=== PATIENT | male | born 1955 | race Caucasian/White ===

== ENCOUNTER 2016-06-04 20:01 | Emergency (ER) | payer OTHER ==
[~2016-06-04] VITALS: Ht 182.9 cm; Wt 77.0 kg
[~2016-06-04 20:01] MED LIST: METH5SOL3 PO
[2016-06-04 20:19] VITALS: BP 144/95; PULSE 93; RESP 18; TEMP 98.7; O2SAT 98
[2016-06-04] MEDS ORDERED: SODIUM CHLORIDE 0.9% FLUSH 5 ML FLUSH IVF PRN (20:30)
[2016-06-04] MEDS ORDERED: ONDANSETRON HCL 4 MG/2 ML VIAL IV PUSH ONE (20:30)
[2016-06-04] MEDS ORDERED: MORPHINE SULFATE 4 MG/ML INJ IV PUSH ONE (20:30)
[2016-06-04 20:36] VITALS: BP_SYST 140; BP_SYST 146; BP_DIAS 79; BP_DIAS 90; O2SAT 97
--- NOTE | 2016-06-04 20:47 | PD ---
HPI . Back and chest pain Chief Complaint: Pain: Acute or Chronic Time Seen by Provider: 20:29 Travel History International Travel<30 days: No Contact w/Intl Traveler<30days: No Traveled to known affect area: No History of Present Illness HPI Patient presents with back and chest pain. Onset yesterday. He is also complaining with shortness of breath. He reports increased chest pain with breathing. He states that his symptoms are very similar to symptoms that he had previously when he was diagnosed with lymphoma. [facility] Past Medical History Arthritis: Yes Cancer: Yes (lymphoma) Cardiovascular Problems: No Diabetes: No Diminished Hearing: No Endocrine: No Gastrointestinal Disorders: No Genitourinary: No Hepatitis: No Hiatal Hernia: No Hypertension: No Immune Disorder: No Implanted Vascular Access Dvce: No Musculoskeletal: Yes Neurologic: No Psychiatric: No Reproductive: No Respiratory: No Thyroid Disease: No Tetanus Vaccination: Unknown Influenza Vaccination: No Past Surgical History Abdominal Surgery: No Cardiac Surgery: No Ear Surgery: No Endocrine Surgery: No Eye Surgery: No Genitourinary Surgery: Yes (VASECTOMY) Gynecologic Surgery: Yes Neurologic Surgery: No Oral Surgery: No Pacemaker: No Thoracic Surgery: No Other Surgery: Yes (VASECTOMY) Social History Alcohol Use: Yes (1-2 BEERS 1-2X WEEK) Tobacco Use: Yes (1/2 PK/DAY) Substance Use: Yes (MARIJUANA USE 1 YEAR AGO) Allergies-Medications (Allergen,Severity, Reaction): Coded Allergies: No Known Allergies (Unverified , 06/04/16) Reported Meds & Prescriptions Reported Meds & Active Scripts Active No Active Prescriptions or Reported Medications Review of Systems Except as stated in HPI: all other systems reviewed are Neg General / Constitutional: No: Fever, Chills Cardiovascular: Positive: Chest Pain or Discomfort Respiratory: Positive: Shortness of Breath Gastrointestinal: No: Nausea, Vomiting, Diarrhea Musculoskeletal: Positive: Pain (upper back pain and lower back pain.) Hematologic/Lymphatic: Positive: Lymph Node Enlargement Physical Exam Narrative GENERAL: The patient is visibly hyperventilating. He is taking very shallow, rapid breaths. He appears anxious. SKIN: Warm and dry. HEAD: Atraumatic. Normocephalic. EYES: Pupils equal and round. ENT: No nasal bleeding or discharge. Mucous membranes pink and moist. NECK: Trachea midline. Neck is supple. CARDIOVASCULAR: Regular rate and rhythm. Heart sounds are normal. RESPIRATORY: No accessory muscle use. Lungs are clear with full air movement throughout. As stated previously, he is hyperventilating. He does have chest wall tenderness. GASTROINTESTINAL: Abdomen soft, non-tender, nondistended. MUSCULOSKELETAL: No obvious deformities. No edema. He has tenderness to palpation of the upper back between his shoulder blades and of the lower back at about the level of the iliac crests. NEUROLOGICAL: Awake and alert. No obvious cranial nerve deficits. Motor grossly within normal limits. Normal speech. PSYCHIATRIC: Appropriate mood and affect; insight and judgment normal. Data Data Last Documented VS Vital Signs Date Time Temp Pulse Resp B/P Pulse Ox O2 Delivery O2 Flow Rate FiO2 06/04/16 23:09 84 18 131/76 96 Room Air 06/04/16 20:19 98.7 Orders Electrocardiogram (06/04/16 20:12) Ckmb (Isoenzyme) Profile (06/04/16 20:29) Complete Blood Count With Diff (06/04/16 20:29) Comprehensive Metabolic Panel (06/04/16 20:29) Magnesium (Mg) (06/04/16 20:29) Prothrombin Time / Inr (Pt) (06/04/16 20:29) Act Partial Throm Time (Ptt) (06/04/16 20:29) Troponin I (06/04/16 20:29) Ecg Monitoring (06/04/16 20:29) Bilateral Bp Monitoring (06/04/16 20:29) Iv Access Insert/Monitor (06/04/16 20:29) Oximetry (06/04/16 20:29) Oxygen Administration (06/04/16 20:29) Morphine Inj (Morphine Inj) (06/04/16 20:30) Sodium Chloride 0.9% Flush (Ns Flush) (06/04/16 20:30) Ct Pulmonary Angiogram (06/04/16 20:29) Ondansetron Inj (Zofran Inj) (06/04/16 20:30) Ct Lumb Spine W/O Contrast (06/04/16 20:29) Lorazepam Inj (Ativan Inj) (06/04/16 22:00) Morphine Inj (Morphine Inj) (06/04/16 22:00) Iohexol 350 Inj (Omnipaque 350 Inj) (2/14/17 21:55) Labs Laboratory Tests Test 06/04/16 20:30 White Blood Count 8.2 TH/MM3 Red Blood Count 4.01 MIL/MM3 Hemoglobin 12.8 GM/DL Hematocrit 37.2 % Mean Corpuscular Volume 92.7 FL Mean Corpuscular Hemoglobin 31.8 PG Mean Corpuscular Hemoglobin 34.3 % Concent Red Cell Distribution Width 13.5 % Platelet Count 319 TH/MM3 Mean Platelet Volume 6.9 FL Neutrophils (%) (Auto) 67.1 % Lymphocytes (%) (Auto) 18.9 % Monocytes (%) (Auto) 10.1 % Eosinophils (%) (Auto) 3.3 % Basophils (%) (Auto) 0.6 % Neutrophils # (Auto) 5.6 TH/MM3 Lymphocytes # (Auto) 1.5 TH/MM3 Monocytes # (Auto) 0.8 TH/MM3 Eosinophils # (Auto) 0.3 TH/MM3 Basophils # (Auto) 0.0 TH/MM3 CBC Comment DIFF FINAL Differential Comment Prothrombin Time 10.7 SEC Prothromb Time International 1.0 RATIO Ratio Activated Partial 28.1 SEC Thromboplast Time Sodium Level 134 MEQ/L Potassium Level 3.9 MEQ/L Chloride Level 99 MEQ/L Carbon Dioxide Level 26.4 MEQ/L Anion Gap 9 MEQ/L Blood Urea Nitrogen 7 MG/DL Creatinine 0.57 MG/DL Estimat Glomerular Filtration 147 ML/MIN Rate Random Glucose 97 MG/DL Calcium Level 8.5 MG/DL Magnesium Level 2.1 MG/DL Total Bilirubin 0.4 MG/DL Aspartate Amino Transf 17 U/L (AST/SGOT) Alanine Aminotransferase 10 U/L (ALT/SGPT) Alkaline Phosphatase 168 U/L Total Creatine Kinase 88 U/L Troponin I LESS THAN 0.02 NG/ML Total Protein 7.2 GM/DL Albumin 3.4 GM/DL [facility] Medical Decision Making Medical Screen Exam Complete: Yes Emergency Medical Condition: Yes Medical Record Reviewed: Yes (records reviewed. 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 He is not being treated. Treatment is not felt to be necessary. He is simply being followed closely.) Interpretation(s) EKG shows a normal sinus rhythm with a ventricular rate of 90. No ST segment elevation or depression. Differential Diagnosis Differential diagnosis includes but is not limited to PE, syndrome, metastatic disease, degenerative disc disease. Narrative Course Patient presents for evaluation of chest and back pain. Onset was yesterday. CBC & BMP Diagram 06/04/16 20:30 AST is 17, ALT And alkaline phosphatase is 68. CK and troponin are normal. CT for PE: 1. No pulmonary embolus. 2. Patchy areas of suspected atelectasis or consolidation at the posterior mid and lower lungs. CT L spine: 1. Degenerative changes throughout with disc bulges. There is some narrowing of the right neural foramina at the L5-S1 level. 2. Moderate narrowing of the thecal sac at the L3-L4 and L4-L5 levels secondary to disc bulges and facet hypertrophy. 3. Focal sclerotic bone lesion at the left L1 pedicle. This is nonspecific. It could represent a benign lesion such as a hemangioma although these typically do not involve the pedicles. Other causes for sclerotic lesions could have a similar appearance. A stress reaction could potentially have this appearance. This area could be further evaluated with a bone scan to determine if this is metabolically active or not. This could be performed as an outpatient. Patient continues to have significant pain. He has had a total of 9 mg of morphine and 2 mg of Ativan. I will give him RX for Percocet and Flexeril. Physician Communication Physician Communication Dr. Colon does not believe that admission is necessary. She feels that oral pain control and close OP follow up would be appropriate. Diagnosis Primary Impression: Intractable back pain Additional Impressions: Chest pain Qualified Code: R07.9 - Chest pain, unspecified type Cervical lymphadenopathy Scripts Cyclobenzaprine (Flexeril)10 Mg Tab10 Mg PO TID PRN (pain) #15 TAB Ref 0 Prov:Carmelita De Santiago MD 06/04/16 Oxycodone-Acetaminophen (Percocet)5-325 mg Tab1-2 Tab PO Q4H PRN (PAIN) #12 TAB Ref 0 Prov:Carmelita De Santiago MD 06/04/16 Disposition: 01 DISCHARGE HOME Condition: Stable Carmelita De Santiago MD Jun 04, 2016 20:47
[2016-06-04 20:48] LABS: AUTOMATED NEUTROPHIL # 5.6 TH/MM3 (1.8-7.7); BASOPHIL % 0.6 % (0.0-2.0); EOSINOPHIL # 0.3 TH/MM3 (0-0.4); EOSINOPHIL % 3.3 % (0.0-4.0); HEMATOCRIT 37.2 % (39.0-51.0); HEMO FLAGS DIFF FINAL; LYMPH % 18.9 % (9.0-44.0); LYMPHOCYTE # 1.5 TH/MM3 (1.0-4.8); MEAN CELL VOLUME 92.7 FL (80.0-100.0); MEAN CORPUSCULAR HEMOGLOBIN 31.8 PG (27.0-34.0); MEAN CORPUSCULAR HGB CONC 34.3 % (32.0-36.0); MONO % 10.1 % (0.0-8.0); NEUT % 67.1 % (16.0-70.0); PLATELET COUNT 319 TH/MM3 (150-450); RED BLOOD COUNT 4.01 MIL/MM3 (4.50-5.90); RED CELL DISTRIBUTION WIDTH 13.5 % (11.6-17.2); WHITE BLOOD COUNT 8.2 TH/MM3 (4.0-11.0)
[2016-06-04 20:58] LABS: CHLORIDE 99 MEQ/L (98-107); POTASSIUM 3.9 MEQ/L (3.5-5.1); SODIUM (NA) 134 MEQ/L (136-145)
[2016-06-04 21:02] LABS: ANION GAP 9 MEQ/L (5-15); BICARBONATE 26.4 MEQ/L (21.0-32.0); BLOOD UREA NITROGEN 7 MG/DL (7-18); MAGNESIUM 2.1 MG/DL (1.5-2.5)
[2016-06-04 21:03] LABS: APTT (PATIENT) 28.1 SEC (24.3-30.1); PROTHROMBIN TIME - PATIENT 10.7 SEC (9.8-11.6)
[2016-06-04 21:05] LABS: ALT (GPT) 10 U/L (12-78); AST (GOT) 17 U/L (15-37); GLOMERULAR FILTRATION RATE 147 ML/MIN (>89)
[2016-06-04 21:07] LABS: TOTAL BILIRUBIN ADULT 0.4 MG/DL (0.2-1.0)
[2016-06-04 21:08] LABS: ALKALINE PHOSPHATASE 168 U/L (45-117)
[2016-06-04 21:21] LABS: CREATINE KINASE 88 U/L (39-308)
[2016-06-04 21:32] VITALS: BP 140/75; PULSE 89; RESP 18; O2SAT 97
[2016-06-04] MEDS ORDERED: IOHEXOL 350 MG/ML 10 ML VIAL (for RAD DIAG) IV ONE (21:55)
[2016-06-04] MEDS ORDERED: LORazepam 2 MG/ML VIAL IV PUSH ONE (22:00)
[2016-06-04] MEDS ORDERED: MORPHINE SULFATE 4 MG/ML INJ IV ONE (22:00)
--- NOTE | 2016-06-04 22:07 | RADHPO ---
EXAM DATE/TIME: 06/04/2016 21:29 [facility] COMPARISON: No previous studies available for comparison. INDICATIONS : Shortness of breath. Evaluate for embolism. IV CONTRAST: 75 cc Omnipaque 350 (iohexol) IV RADIATION DOSE: 11.94 CTDIvol (mGy) MEDICAL HISTORY : Lymphoma. SURGICAL HISTORY : None. ENCOUNTER: Initial ACUITY: 1 day PAIN SCALE: 10/10 LOCATION: Bilateral upper chest Posterior TECHNIQUE: Volumetric scanning of the chest was performed using a pulmonary embolism protocol MIP images were re constructed. Using automated exposure control and adjustment of the mA and/or kV according to patien t size, radiation dose was kept as low as reasonably achievable to obtain optimal diagnostic quality images. FINDINGS: PULMONARY ARTERIES: No filling defects are seen in the pulmonary arteries through the segmental level. LUNGS: There are patchy areas of increased density at the posterior mid and lower lungs bilaterally. There i s mild emphysematous change in the upper lungs. PLEURAE: There is no pleural thickening or pleural effusion. MEDIASTINUM: There is good visualization of the great vessels of the middle mediastinum. No evidence of mediastin al or hilar adenopathy/mass. MUSCULOSKELETAL: Within normal limits for patient age. MISCELLANEOUS: The visualized upper abdominal organs demonstrate no acute abnormality. CONCLUSION: 1. No pulmonary embolus. 2. Patchy areas of suspected atelectasis or consolidation at the posterior mid and lower lungs. Hermelindo Simms MD on June 04, 2016 at 22:04 Board Certified Radiologist. This report was verified electronically.
--- NOTE | 2016-06-04 22:27 | RADHPO ---
EXAM DATE/TIME: 06/04/2016 21:29 [facility] COMPARISON: CT PULMONARY ANGIOGRAM, June 04, 2016, 21:29. INDICATIONS : Lower back pain. RADIATION DOSE: 29.53 CTDIvol (mGy) MEDICAL HISTORY : Lymphoma. SURGICAL HISTORY : None. ENCOUNTER: Initial ACUITY: 1 day PAIN SCALE: 10/10 LOCATION: Bilateral lower back TECHNIQUE: Volumetric scanning of the lumbar spine was performed. Multiplanar reconstructions in the sagittal, coronal and oblique axial planes were performed. Using automated exposure control and adjustment of the mA and/or kV according to patient size, radiation dose was kept as low as reasonab ly achievable to obtain optimal diagnostic quality images. FINDINGS: There are five non rib-bearing lumbar elements. The lumbar vertebral bodies are iban l in height. They are normally aligned in the sagittal plane. There is a mild dextrocurvature of th e lumbar spine at the apex of the L3 level. There are marginal osteophytes seen throughout. T12-L1: Disc space is grossly intact. Significant stenosis is not appreciated. The neural foramina are normal. There is sclerosis at the left pedicle. This is nonspecific. No other possible focal b one lesions are seen throughout the study. L1-L2: The disc space is grossly intact. Significant stenosis is not appreciated. The neural for rk are normal. L2-L3: There is mild diffuse disc bulge. This straightens the anterior border of the thecal sac c ausing a mild impression on the anterior aspect of the thecal sac. The neural foramina are patent katia aterally. There is mild facet hypertrophy. L3-L4: There is moderate diffuse disc bulge. There is mild facet hypertrophy. These changes lead to moderate narrowing of the thecal sac. The neural foramina are grossly patent. L4-L5: There is moderate diffuse disc bulge. There is mild facet hypertrophy. These changes lead to moderate narrowing of the thecal sac. The neural foramina are grossly normal. L5-S1: Disc demonstrates decreased signal. There is mild diffuse disc bulge. Significant narrowing of the thecal sac is not seen. There is facet hypertrophy being worse on the right. There is some degree of narrowing of the right neural foramina. The left neural foramina appears patent. CONCLUSION: 1. Degenerative changes throughout with disc bulges. There is some narrowing of the right neural fora francheska at the L5-S1 level. 2. Moderate narrowing of the thecal sac at the L3-L4 and L4-L5 levels secondary to disc bulges and fa cet hypertrophy. 3. Focal sclerotic bone lesion at the left L1 pedicle. This is nonspecific. It could represent a be nign lesion such as a hemangioma although these typically do not involve the pedicles. Other causes for sclerotic lesions could have a similar appearance. A stress reaction could potentially have this appearance. This area could be further evaluated with a bone scan to determine if this is metabolic ally active or not. This could be performed as an outpatient. Hermelindo Simms MD on June 04, 2016 at 22:06 Board Certified Radiologist. This report was verified electronically.
[2016-06-04 23:09] VITALS: BP 131/76; PULSE 84; RESP 18; O2SAT 96
[2016-06-04] MEDS ORDERED: PERC5TAB12 PO (23:19)
[2016-06-04] MEDS ORDERED: CYCL1TAB29 PO (23:19)
[2016-06-04] MEDS ORDERED: HYDROmorphone HCL PF 2 MG/ML VIAL IV PUSH ONE ×2 (23:30)
[2016-06-04 23:50] VITALS: BP 120/73; PULSE 75; RESP 18; O2SAT 97
--- NOTE | 2016-06-05 22:58 | EKG ---
Date Performed: 06/04/2016 Time Performed: 20:12:48 PTAGE: 60 years EKG: Sinus rhythm rSr'(V1) - probable normal variant Normal ECG PREVIOUS TRACING : 05/16/2015 13.26 DOCTOR: Javed Nicholson Interpretating Date/Time 06/05/2016 22:54:58
== END 2016-06-05 00:23 | disposition home or self-care (01) ==
LOC: PHED 20:01
DX: M54.9 Dorsalgia, unspecified (principal); R07.9 Chest pain, unspecified; R59.0 Localized enlarged lymph nodes; R06.02 Shortness of breath; F17.210 Nicotine dependence, cigarettes, uncomplicated
CPT/HCPCS: 71275; 72131; 80053; 82550; 83735; 84484; 85025; 85610; 85730; 93005; 96374; 96375; 99284; J1170; J2060; J2270; J2405; Q9967

== ENCOUNTER 2016-10-11 07:44 | Day surgery (SDC) | payer OTHER ==
[~2016-10-11] VITALS: Ht 182.9 cm; Wt 71.4 kg
[~2016-10-11 07:44] MED LIST changes: +CYCL1TAB29 PO; -METH5SOL3 PO; +PERC5TAB12 PO
[2016-10-11 08:09] VITALS: BP 113/63; PULSE 66; RESP 18; TEMP 98.1; O2SAT 97
[2016-10-11] MEDS ORDERED: SODIUM CHLOR 0.9% 1000 ML IV SCH (09:00)
[2016-10-11] MEDS ORDERED: LIDOCAINE 1%/EPINEPHrine 1:100,000 SOLN 20 ML VIAL ONE (09:24)
[2016-10-11 09:26] LABS: AUTOMATED NEUTROPHIL # 3.3 TH/MM3 (1.8-7.7); EOSINOPHIL # 0.1 TH/MM3 (0-0.4); EOSINOPHIL % 1.8 % (0.0-4.0); HEMATOCRIT 34.4 % (39.0-51.0); HEMO FLAGS DIFF FINAL; LYMPH % 21.2 % (9.0-44.0); LYMPHOCYTE # 1.1 TH/MM3 (1.0-4.8); MEAN CELL VOLUME 93.4 FL (80.0-100.0); MEAN CORPUSCULAR HGB CONC 34.3 % (32.0-36.0); MONO % 9.5 % (0.0-8.0); NEUT % 66.5 % (16.0-70.0); PLATELET COUNT 262 TH/MM3 (150-450); RED BLOOD COUNT 3.69 MIL/MM3 (4.50-5.90); RED CELL DISTRIBUTION WIDTH 14.8 % (11.6-17.2)
[2016-10-11] MEDS ORDERED: MIDAZOLAM HCL 5 MG/5 ML VIAL ONE (09:43)
[2016-10-11] MEDS ORDERED: fentaNYL CITRATE 250 MCG/5 ML AMP ONE (09:44)
[2016-10-11] MEDS ORDERED: BUPIVACAINE HCL PF 0.75% 10 ML VIAL ONE (10:14)
[2016-10-11 10:35] LABS: BONE MARROW PROCESSING COMPLETE; IRON STAIN DONE; JENNER GIEMSA STAIN DONE
[2016-10-11 10:40] VITALS: BP 94/56; PULSE 64; RESP 20; TEMP 97.6; O2SAT 93
[2016-10-11 10:55] VITALS: BP 92/55; PULSE 63; RESP 16; O2SAT 93
[2016-10-11 11:25] VITALS: BP 95/56; PULSE 64; RESP 18; O2SAT 95
[2016-10-11 11:55] VITALS: BP 102/62; PULSE 63; RESP 16; O2SAT 95
--- NOTE | 2016-10-11 14:15 | RADRPT ---
EXAM DATE/TIME: 10/11/2016 10:00 [facility] COMPARISON: No previous studies available for comparison. INDICATIONS : Follicular lymphoma. SEDATION TIME: 25 minutes BIOPSY SITE: Right iliac MEDICATION(S): 1.) 3 mg midazolam (Versed) IV 2.) 200 mcg fentanyl (Sublimaze) IV DEVICE(S): 1.) 11 gauge Bone marrow biopsy needle MEDICAL HISTORY : Lymphoma. SURGICAL HISTORY : None. ENCOUNTER: Initial ACUITY: 1 day PAIN SCORE: 0/10 LOCATION: Right pelvis A total of one core specimen(s) were obtained and sent to the laboratory for pathologic evaluation. PROCEDURE: 1. CT guided bone marrow biopsy. 2. Conscious sedation with continuous EKG and oximetry monitoring. Prior to the procedure informed consent was obtained. Any appropriate prior imaging studies were rev iewed. Using automated exposure control and adjustment of the mA and/or kV according to patient size , radiation dose was kept as low as reasonably achievable to obtain optimal diagnostic quality images . DICOM format image data is available electronically for review and comparison. The site was prepped in a sterile fashion. Full sterile technique was used, including cap, mask, judy rile gloves and gown and a large sterile sheet. Hand hygiene and 2% chlorhexidine and/or betadine/al cohol prep was utilized per protocol for cutaneous antisepsis. The skin and subcutaneous tissues wer e infiltrated with local anesthetic solution. With CT guidance the previously identified target was localized. Biopsy was performed using the presc ribed needle as above. Following biopsy marrow aspiration was performed with repeat puncture. Adequa te hemostasis was obtained with compression at the puncture site. Follow-up CT scan reveals no hemorrhage. Conscious sedation was performed with the prescribed dosages and duration as above in the presence of an independent trained radiology nurse to assist in the monitoring of the patient. EKG and oximetry remained stable throughout the procedure. The patient tolerated the procedure well and there were no complications. The patient was sent to Radiology Outpatient Unit in stable condition. CONCLUSION: 1. Uncomplicated CT guided bone marrow aspirate. 2. Uncomplicated CT guided bone marrow biopsy. Kris Monk MD FACR on October 11, 2016 at 14:12 Board Certified Radiologist. This report was verified electronically.
== END 2016-10-11 12:40 | disposition home or self-care (01) ==
LOC: HRAD 07:44 → HRIP 07:50 → HRAD 12:40
PROVIDERS: ATTEND Internal Medicine Hematology & Oncology
DX: C82.90 Follicular lymphoma, unspecified, unspecified site (principal); D64.9 Anemia, unspecified; M50.30 Other cervical disc degeneration, unspecified cervical region; R91.1 Solitary pulmonary nodule
CPT/HCPCS: 38221; 77012; 85025; 85097; 88305; 88311; 88313; 99152; 99153; C1830; G0364; J2250; J3010; J7030

== ENCOUNTER 2018-05-06 11:02 | Inpatient (IN) ==
--- NOTE | 2018-05-06 11:32 | ED ---
HPI General Chief Complaint: Neuro Symptoms/Deficit Stated Complaint: Left arm numbness Time Seen by Provider: 05/06/18 11:23 Source: patient and EMS Mode of arrival: EMS Limitations: no limitations History of Present Illness HPI Narrative: 62-year-old male patient presents to the ER today brought in by EMS, started having slurred speech, left arm weakness and paresthesia starting about half an hour prior to arrival. He denies any headaches, chest pains, or any other symptoms. He has previous history of lymphoma diagnosed in 2017 status post chemo and has been free of chemo in remission for about a year. The lymphoma was apparently in his lower spine. Stroke alert was called in the ER for further evaluation. Modifying Factors: None Associated Signs & Symptoms: Left arm weakness, stroke alert Risk Factors: Previous history of lymphoma Related Data Home Medications Medication Instructions Recorded Confirmed No Known Home Medications 05/06/18 05/06/18 Allergies Allergy/AdvReac Type Severity Reaction Status Date / Time No Known Allergies Allergy Verified 05/06/18 11:24 Review of Systems ROS: all other systems reviewed are negative PMFSH History History Provided By: Patient Medical History Medical History Lymphoma (Acute) Surgical History Surgical History S/P cervical spinal fusion (Acute) Social History Social History Substance History: No History of Abuse Second Hand Smoke Exposure: Yes Smoking Status: Current every day smoker Tobacco Type: Cigarettes How Often Do You Have a Drink Containing Alcohol: 2 to 4 times a month Recent Travel in [facility] within the Last 8 Weeks: No Recent Out of Country Travel within the Last 8 Weeks: No Exam Narrative Exam Narrative: GENERAL: Well-developed elderly male patient currently in mild distress. Awake and oriented x3. SKIN: Focused skin assessment warm/dry. HEAD: Atraumatic. Normocephalic. EYES: Pupils equal and round. No scleral icterus. No injection or drainage. ENT: No nasal bleeding or discharge. Mucous membranes pink and moist. NECK: Trachea midline. No JVD. Supple. CARDIOVASCULAR: Regular rate and rhythm. No murmur appreciated. RESPIRATORY: No accessory muscle use. Clear to auscultation. Breath sounds equal bilaterally. GASTROINTESTINAL: Abdomen soft, non-tender, nondistended. Hepatic and splenic margins not palpable. MUSCULOSKELETAL: No obvious deformities. No clubbing. No cyanosis. No edema. NEUROLOGICAL: Awake and alert. No obvious cranial nerve deficits. Left arm weakness, unable to lift off the bed, and the left leg mild weakness, ataxia. Normal speech. PSYCHIATRIC: Appropriate mood and affect; insight and judgment normal. Course Initial Documented Vital Signs Temperature 97.7 F 05/06/18 11:11 Pulse Rate 74 05/06/18 11:11 Respiratory Rate 12 05/06/18 11:11 Blood Pressure 160/77 H 05/06/18 11:11 Pulse Oximetry 97 05/06/18 11:11 Last Documented Vital Signs Temperature 97.7 F 05/06/18 11:11 Pulse Rate 88 05/06/18 11:23 Respiratory Rate 19 05/06/18 11:23 Blood Pressure 118/78 05/06/18 11:23 Pulse Oximetry 98 05/06/18 11:23 NIH Stroke Scale NIHSS Time Completed NIHSS Time Completed: 11:20 NIH Stroke Scale Level of Consciousness: 0-Alert Orientation Questions: 0-Answers both correct Responds to Commands: 0-Both tasks correct Gaze Eye Movement: 0-Horizontal movement WNL Visual Bust[place]ante: 0-No visual field defect Facial Movement: 0-Normal Motor Functions Arm LEFT: 3-No effort against gravity Motor Functions Arm RIGHT: 0-No drift Motor Functions Leg LEFT: 1-Drift before 5 seconds Motor Functions Leg RIGHT: 0-No drift Limb Ataxia: 1-Ataxia in one limb Sensory Loss: 1-Mild sensory loss Best Language: 0-Normal Articulation: 0-Normal Extinction or Inattention Sensory: 0-Absent Total: 6 Medical Decision Making MDM Narrative Medical decision making narrative: Lab work did not indicate any electrolyte abnormalities. EKG did not show any A. fib, is normal sinus rhythm. There are tall T waves although this is of uncertain etiology. CAT scan did not show any signs of acute intracranial processes. Blood sugar is normal, and TPA was initiated after Dr. Kaur saw the patient, and saw the CT. Case is then discussed with Dr. Casarez for admission to ICU. Medical Screen Exam Complete: Yes Emergency Medical Condition: Yes Differential Diagnosis Differential Diagnosis: CVA versus ICH versus metastases Lab Data Result diagrams: 05/06/18 11:25 05/06/18 11:25 Lab Results 05/06/18 05/06/18 05/06/18 Range/Units 11:21 11:25 11:25 WBC 5.7 (4.0-11.0) th/mm3 RBC 4.41 L (4.50-5.90) mil/mm3 Hgb 14.6 (13.0-17.0) gm/dL POC Hgb (Calc) (13.0-17.0) g/dL Hct 42.3 (39.0-51.0) % POC Hct (39-51.0) % MCV 96.0 (80.0-100.0) fL MCH 33.1 (27.0-34.0) pg MCHC 34.5 (32.0-36.0) % RDW 13.8 (11.6-17.2) % Plt Count 261 (150-450) th/mm3 MPV 7.1 (7.0-11.0) fL Neut % (Auto) 68.4 (16.0-70.0) % Lymph % (Auto) 17.9 (9.0-44.0) % [place] % (Auto) 11.3 H (0.0-8.0) % Eos % (Auto) 1.6 (0.0-4.0) % Baso % (Auto) 0.8 (0.0-2.0) % Neut # (Auto) 3.9 (1.8-7.7) th/mm3 Lymph # (Auto) 1.0 (1.0-4.8) th/mm3 [place] # (Auto) 0.6 (0.0-0.9) th/mm3 Eos # (Auto) 0.1 (0.0-0.4) th/mm3 Baso # (Auto) 0.0 (0.0-0.2) th/mm3 WBC Differential . Differential Comment Auto diff final PT 10.0 (9.8-11.6) sec INR 1.0 Ratio APTT 27.3 (23.4-31.7) sec POC Sodium (137-144) mmol/L Sodium (136-145) meq/L POC Potassium (3.6-5.0) mmol/L Potassium (3.5-5.1) meq/L POC Chloride (102-111) mmol/L Chloride (98-107) meq/L Carbon Dioxide (21.0-32.0) meq/L Anion Gap (5-15) meq/L POC BUN (5-21) mg/dL BUN (7-18) mg/dL Creatinine (0.60-1.30) mg/dL POC Creatinine (0.6-1.3) mg/dL Estimated GFR (>89) mL/min POC Glucose 104 (68-110) mg/dl Random Glucose (74-106) mg/dL Calcium (8.5-10.1) mg/dL 05/06/18 05/06/18 Range/Units 11:25 11:40 WBC (4.0-11.0) th/mm3 RBC (4.50-5.90) mil/mm3 Hgb (13.0-17.0) gm/dL POC Hgb (Calc) 15.3 (13.0-17.0) g/dL Hct (39.0-51.0) % POC Hct 45.0 (39-51.0) % MCV (80.0-100.0) fL MCH (27.0-34.0) pg MCHC (32.0-36.0) % RDW (11.6-17.2) % Plt Count (150-450) th/mm3 MPV (7.0-11.0) fL Neut % (Auto) (16.0-70.0) % Lymph % (Auto) (9.0-44.0) % [place] % (Auto) (0.0-8.0) % Eos % (Auto) (0.0-4.0) % Baso % (Auto) (0.0-2.0) % Neut # (Auto) (1.8-7.7) th/mm3 Lymph # (Auto) (1.0-4.8) th/mm3 [place] # (Auto) (0.0-0.9) th/mm3 Eos # (Auto) (0.0-0.4) th/mm3 Baso # (Auto) (0.0-0.2) th/mm3 WBC Differential Differential Comment PT (9.8-11.6) sec INR Ratio APTT (23.4-31.7) sec POC Sodium 134 L (137-144) mmol/L Sodium 133 L (136-145) meq/L POC Potassium 4.1 (3.6-5.0) mmol/L Potassium 4.1 (3.5-5.1) meq/L POC Chloride 95 L (102-111) mmol/L Chloride 99 (98-107) meq/L Carbon Dioxide 27.9 (21.0-32.0) meq/L Anion Gap 6 (5-15) meq/L POC BUN 4 L (5-21) mg/dL BUN 7 (7-18) mg/dL Creatinine 0.74 (0.60-1.30) mg/dL POC Creatinine 0.7 (0.6-1.3) mg/dL Estimated GFR Greater than 89 (>89) mL/min POC Glucose 100 (68-110) mg/dl Random Glucose 101 (74-106) mg/dL Calcium 8.3 L (8.5-10.1) mg/dL ECG Data Attestation: I personally reviewed and interpreted this ECG as follows: Interpretation: EKG shows normal sinus rhythm at a rate of 74 bpm. Tall T waves in the leads V3 through V5. No ST elevations or depressions. Discharge Plan Discharge Disposition Patient Disposition: ED Admit(ED Internal Use Only) Discharge Condition Condition: Critical Discharge Order Discharge Orders: ED Use Only Admit Order (Routine); Ordered 05/06/18 Ordered By: Nicho Muir Discharge Details Anticipated Discharge Date: 05/06/18 Diagnosis: Stroke Physicians Team ED Provider: Nicho Muir Primary Care Provider: Richie Armenta Rxs /Orders / Referrals /Forms Prescriptions: No Action No Known Home Medications RF: 0 Discharge Interventions Interventions: Vital Signs Last Done: 05/06/18 11:23 Status ED Status: With Doctor
[2018-05-06 11:47] LABS: Baso % (Auto) 0.8 % (0.0-2.0); Eos # (Auto) 0.1 th/mm3 (0.0-0.4); Eos % (Auto) 1.6 % (0.0-4.0); Hematocrit 42.3 % (39.0-51.0); Hemoglobin 14.6 gm/dL (13.0-17.0); Lymph % (Auto) 17.9 % (9.0-44.0); Mean Corpuscular HGB Conc 34.5 % (32.0-36.0); Mean Corpuscular Hemoglobin 33.1 pg (27.0-34.0); Mean Platelet Volume 7.1 fL (7.0-11.0); Mono # (Auto) 0.6 th/mm3 (0.0-0.9); Mono % (Auto) 11.3 % (0.0-8.0); Neut # (Auto) 3.9 th/mm3 (1.8-7.7); Neut % (Auto) 68.4 % (16.0-70.0); Platelet Count 261 th/mm3 (150-450); Red Blood Count 4.41 mil/mm3 (4.50-5.90); Red Cell Distribution Width 13.8 % (11.6-17.2); White Blood Count 5.7 th/mm3 (4.0-11.0)
[2018-05-06 11:55] LABS: Activated Partial Thrombo Time 27.3 sec (23.4-31.7)
[2018-05-06] MEDS ORDERED: Alteplase Drip 61.5 MG in Syringe/Bag 1 EACH IV.SIG ONE (11:58)
[2018-05-06] MEDS ORDERED: Alteplase Bolus 9 MG/9 ML Syringe IV.PUSH ONE (11:58)
[2018-05-06 12:03] LABS: Anion Gap 6 meq/L (5-15); Blood Urea Nitrogen 7 mg/dL (7-18); Calcium 8.3 mg/dL (8.5-10.1); Carbon Dioxide 27.9 meq/L (21.0-32.0); Chloride 99 meq/L (98-107); Glomerular Filtration Rate Greater Than 89 mL/min (>89); Glucose,Random 101 mg/dL (74-106); Potassium 4.1 meq/L (3.5-5.1); Sodium 133 meq/L (136-145)
--- NOTE | 2018-05-06 12:06 | CT ---
EXAM DATE: 05/06/2018 11:42 AM EST AGE/SEX: 62 years / Male INDICATIONS: Stroke alert, left arm numbness. CLINICAL DATA: This is the patient's initial encounter. Patient reports that signs and symptoms have been present for 1 day and indicates a pain score of 0/10. MEDICAL/SURGICAL HISTORY: None. None. RADIATION DOSE: 33.02 CTDI (mGy) COMPARISON: [facility], CTA HEAD W CONTRAST W 3D, 05/06/2018. . TECHNIQUE: CT of the head without contrast. Using automated exposure control and adjustment of the mA and/or kV according to patient size, radiation dose was kept as low as reasonably achievable to ob tain optimal diagnostic quality images. DICOM format image data is available electronically for revi ew and comparison. FINDINGS: No signs of intracranial hemorrhage, acute infarct, or mass. Ventricles and cisterns are of normal si ze and configuration. There is a circumscribed CSF attenuation structure in the right frontal white m atter measuring 6 mm. This may reflect a remote lacunar infarct, perivascular space or developmental cyst. CONCLUSION: 1. No acute findings. Report was called by Dr. Yeung to Dr. Muir at 12:01 PM on May 06, 2018] Electronically signed by: Gui Yeung MD Board Certified Radiologist 05/06/2018 12:05 PM EST
[2018-05-06 12:07] LABS: Creatine Kinase 120 U/L (39-308)
--- NOTE | 2018-05-06 12:11 | CT ---
EXAM DATE: 05/06/2018 12:03 PM EST AGE/SEX: 62 years / Male INDICATIONS: Stroke alert, left arm numbness. CLINICAL DATA: This is the patient's initial encounter. Patient reports that signs and symptoms have been present for 1 day and indicates a pain score of 0/10. MEDICAL/SURGICAL HISTORY: None. None. RADIATION DOSE: 26.85 CTDI (mGy) ; Combined studies COMPARISON: [facility] [place], CT HEAD W/O CONTRAST, 05/06/2018. . TECHNIQUE: Volumetric scanning was performed using a multi-row detector CT scanner during bolus infu dorina of 98 ml Visipaque 320 (iodixanol) nonionic water-soluble contrast as a cumulative dose for mul tiple exams. The data was post processed with a variety of visualization algorithms including full volume maximum intensity projection, multi-planar sliding thin slab reformation, curved planar reform ation, and surface rendering techniques. Using automated exposure control and adjustment of the mA a nd/or kV according to patient size, radiation dose was kept as low as reasonably achievable to obtain optimal diagnostic quality images. DICOM format image data is available electronically for review a nd comparison. FINDINGS: There is excellent visualization of the major intracranial arteries out to the second-order branch ve ssels. There is no evidence for aneurysm, vessel truncation or stenosis, and no evidence for vascula r malformation. In the neck there is moderate to severe stenosis of the left subclavian artery just proximal to the o rigin of the left vertebral artery on axial image 34 CONCLUSION: 1. Widely patent intracranial vasculature with no occlusion or aneurysm. 2. Left subclavian artery stenosis is seen just proximal to the arch and of the left vertebral arter y. 3. Findings were discussed with Dr. Kaur at 12:07 PM on May 06, 2018. Electronically signed by: Gui Yeung MD Board Certified Radiologist 05/06/2018 12:10 PM EST
[2018-05-06] MEDS ORDERED: Sod Chloride 0.9% Inj 1,000 ML IV.CONT SCH (12:15)
--- NOTE | 2018-05-06 12:32 | CT ---
EXAM DATE: 05/06/2018 12:22 PM EST AGE/SEX: 62 years / Male INDICATIONS: Stroke alert, left arm weakness. CLINICAL DATA: This is the patient's initial encounter. Patient reports that signs and symptoms have been present for 1 day and indicates a pain score of 0/10. MEDICAL/SURGICAL HISTORY: None. None. RADIATION DOSE: 26.85 CTDI (mGy) ; Combined studies COMPARISON: [facility], CT SOFT TISSUE NECK W/ CONTRAST, 10/07/2016. [facility], CTA HEAD W CONTRAST W 3D, 04/21. [facility], CT HEAD W/O CONTRAST, 05/06/2018. . TECHNIQUE: Volumetric scanning was performed using a multirow detector CT scanner during bolus infus ion of 98 ml Visipaque 320 (iodixanol) nonionic water-soluble contrast as a cumulative dose for mult iple exams. The data was postprocessed with a variety of visualization algorithms including full-vo lume maximum intensity projection, multiplanar sliding thin-slab reformation, curved-planar reformati on, and surface-rendering techniques. Using automated exposure control and adjustment of the mA and/ or kV according to patient size, radiation dose was kept as low as reasonably achievable to obtain op timal diagnostic quality images. DICOM format image data is available electronically for review and comparison. Percent stenosis is calculated using the diameter of the stenotic region over the diameter of the nor mal distal internal carotid artery. FINDINGS: Aortic Arch: There is a three-vessel origin of the great vessels from the aorta. No evidence of ost ial narrowing there is a 1.6 cm segment of soft plaque deposition within the proximal left subclavian artery 1 cm distal to the origin. Estimated 65% narrowing. Right Carotid: The common carotid artery is intact. The carotid bulb has a normal configuration wit hout ulceration or narrowing. The internal carotid artery lumen is smooth without stenosis. There is mild atherosclerotic plaquing. The external carotid artery is intact. Left Carotid: The common carotid artery is intact. The carotid bulb has a normal configuration with out ulceration or narrowing. The internal carotid artery lumen is smooth without stenosis. The exte rnal carotid artery is intact. There is mild atherosclerotic plaquing. Vertebrals: The vertebral arteries have a symmetric diameter. No stenotic lesions are seen. CONCLUSION: 1. Carotid and vertebral arteries are widely patent. 2. Moderate left proximal subclavian artery stenosis is identified. 3. Findings were discussed with Dr. Kaur at 12:07 PM on May 06, 2018. Electronically signed by: Gui Yeung MD Board Certified Radiologist 05/06/2018 12:30 PM EST
--- NOTE | 2018-05-06 13:47 | XR ---
EXAM DATE: 05/06/2018 1:36 PM EST AGE/SEX: 62 years / Male INDICATIONS: Stoke Alert. Patient complains of chest pain. CLINICAL DATA: This is the patient's initial encounter. Patient reports that signs and symptoms have been present for 1 day and indicates a pain score of 3/10. MEDICAL/SURGICAL HISTORY: None. None. COMPARISON: [facility], CHEST SINGLE AP, 05/16/2015. [facility], CT CHEST W/O CONTRAST, 09/30/2017. . FINDINGS: The lungs are clear without infiltrate, nodule, or mass. The scattered areas of parenchymal infiltrat es in the patient's chest CT from 09/2017 are not visualized possibly technical. There is no appreciab le pleural effusion for technique. Heart and mediastinum are unremarkable. CONCLUSION: No acute cardiopulmonary disease. Electronically signed by: Pedro Multani MD Board Certified Radiologist 05/06/2018 1:46 PM EST
[2018-05-06] MEDS: Sod Chloride 0.9% Inj 1,000 ML IV.CONT SCH (13:59)
--- NOTE | 2018-05-06 14:30 | MR ---
EXAM DATE: 05/06/2018 2:18 PM EST AGE/SEX: 62 years / Male INDICATIONS: Left sided weakness. CLINICAL DATA: This is the patient's initial encounter. Patient reports that signs and symptoms have been present for 1 day and indicates a pain score of 0/10. MEDICAL/SURGICAL HISTORY: Lymphoma. Fusion, cervical. left leg surgery COMPARISON: [facility] [place], [place] HEAD W/O CONTRAST, 05/06/2018. . TECHNIQUE: Multiplanar, multisequence examination of the brain was performed without and with 7.5 ml Gadavist (gadobutrol) contrast as a single exam dose. FINDINGS: Fusion weighted images demonstrate no evidence for acute infarction. Signal intensity of the brain is normal. Circumscribed well-defined ovoid structure in the right frontal deep white matter is noted c orresponding to the findings on CT. A prominent perivascular space is suspected. No concerning masses seen. There is no hemorrhage. No abnormal areas of enhancement are identified following contrast adm inistration. There is mild prominence of the Virchow Calin spaces. CONCLUSION: 1. No signs of mass, acute infarct, or hemorrhage. Electronically signed by: Gui Yeung MD Board Certified Radiologist 05/06/2018 2:29 PM EST
[2018-05-06] MEDS ORDERED: Gadobutrol PF 7.5 MMOL/7.5 ML Vial (for RAD) IV.SIG ONE (15:16)
--- NOTE | 2018-05-06 15:32 | P.HPCC ---
History of Present Illness Primary Care Physician: Richie Armenta MD Chief Complaint: Acute left sided weakness History of Present Illness: Patient is a 62-year-old male with past medical history significant for lymphoma in remission who presented to the emergency department with slurred speech, left arm weakness and paresthesia starting about half an hour prior to arrival. He has previous history of lymphoma diagnosed in 2017 status post chemo and has been in remission now. Stroke alert was called initial CT of the head was negative. Patient was evaluated by Dr. Kaur and received TPA per protocol. I evaluate the patient in the ED. He is status post TPA. His neuro deficits are improving he is able to move his left upper extremity currently 4 out of 5 power. All orders per stroke protocol placed - Diagnosis (1) Acute ischemic stroke (2) History of lymphoma Inpatient Certification: I certify that the inpatient services were ordered in accordance with Medicare regulations governing the order. This includes certification that hospital inpatient services are reasonable and necessary and in the case of services not specified as inpatient-only under 42 CFR 419.22(n), that they are appropriately provided as inpatient services in accordance to with the 2-midnight benchmark under 43 CFR 412.3(e) Estimated Total Length of Stay (Days): 5 Plans for Post Hospital Care: Not yet determined Review of Systems All other systems reviewed negative except as stated in HPI PMFSH - History History Provided By: Patient - Medical History Medical History: Medical History (Last Reviewed 05/06/18 @ 15:43 by Dawit Casarez MD) Lymphoma - Surgical History Surgical History: Surgical History (Last Reviewed 05/06/18 @ 15:44 by Dawit Casarez MD) S/P cervical spinal fusion - Tobacco History Second Hand Smoke Exposure: Yes Tobacco Use In Past 30 Days: Yes (last use 05/04/2018) Smoking Status: Current every day smoker Tobacco Type: Cigarettes - Alcohol History How Often Do You Have a Drink Containing Alcohol: 4 or more times a week - Substance Use History Substance History: Past History - Travel History Recent Travel in the [place] Within the Last 8 Weeks: No Recent Travel Out of the Country Within the Last 8 Weeks: No - Immunization History Tetanus Immunization: >5 Years Hx Influenza Vaccine This Season: No Medications and Allergies Active Medications: Active Medications Sodium Chloride (Ns Inj) 1,000 mls @ 70 mls/hr IV.CONT .[id number] [facility] Last Admin: 05/06/18 13:59 Dose: 70 mls/hr Influenza Virus Vaccine (Fluarix (Quad) Vaccine Inj) 0.5 ml IM .ONCE ONE Stop: 05/06/18 15:31 Sodium Chloride (Ns Flush) 2 ml IV.FLUSH UNSCH PRN PRN Reason: FLUSH AFTER USING IV ACCESS Sodium Chloride (Ns Flush) 2 ml IV.FLUSH BID [facility] Allergies Allergy/AdvReac Type Severity Reaction Status Date / Time No Known Allergies Allergy Verified 05/06/18 11:24 Home Medications Medication Instructions Recorded Confirmed Type No Known Home Medications 05/06/18 05/06/18 History Results - Labs CBC & Chem 7: 05/06/18 11:25 05/06/18 11:25 Labs: Short CBC 05/06/18 Range/Units 11:25 WBC 5.7 (4.0-11.0) th/mm3 Hgb 14.6 (13.0-17.0) gm/dL Hct 42.3 (39.0-51.0) % Plt Count 261 (150-450) th/mm3 BMP 05/06/18 11:25 Sodium 133 L Potassium 4.1 Chloride 99 Carbon Dioxide 27.9 BUN 7 Creatinine 0.74 Calcium 8.3 L Cardiac Enzymes 05/06/18 Range/Units 11:25 Total Creatine Kinase 120 (39-308) U/L CK-MB (CK-2) Less than 1.0 (0.5-3.6) ng/mL Troponin I Less than 0.02 L (0.02-0.05) ng/mL - Imaging Impressions Chest X-Ray 05/06/18 11:23 CONCLUSION: No acute cardiopulmonary disease. Head CT 05/06/18 11:23 CONCLUSION: 1. No acute findings. Report was called by Dr. Yeung to Dr. Muir at 12:01 PM on April] Head CTA 05/06/18 11:23 CONCLUSION: 1. Widely patent intracranial vasculature with no occlusion or aneurysm. 2. Left subclavian artery stenosis is seen just proximal to the arch and of the left vertebral artery. 3. Findings were discussed with Dr. Kaur at 12:07 PM on May 06, 2018. Neck CTA 05/06/18 11:23 CONCLUSION: 1. Carotid and vertebral arteries are widely patent. 2. Moderate left proximal subclavian artery stenosis is identified. 3. Findings were discussed with Dr. Kaur at 12:07 PM on May 06, 2018. Head MRI 05/06/18 12:08 CONCLUSION: 1. No signs of mass, acute infarct, or hemorrhage. Exam Vital signs: Vital Signs 05/06/18 11:11 05/06/18 11:23 05/06/18 11:30 Temperature 97.7 F Pulse Rate 74 88 80 Respiratory Rate 12 19 17 Blood Pressure 160/77 H 118/78 112/75 Pulse Oximetry 97 98 97 05/06/18 11:40 05/06/18 11:53 05/06/18 12:10 Temperature Pulse Rate 74 74 Respiratory Rate 19 18 Blood Pressure 116/71 124/71 Pulse Oximetry 94 L 97 97 05/06/18 12:15 05/06/18 12:23 05/06/18 12:38 Temperature Pulse Rate 71 68 66 Respiratory Rate 19 20 19 Blood Pressure 113/74 111/72 116/74 Pulse Oximetry 98 96 98 05/06/18 12:53 05/06/18 13:08 05/06/18 13:23 Temperature Pulse Rate 66 65 64 Respiratory Rate 17 15 16 Blood Pressure 107/70 110/69 109/71 Pulse Oximetry 98 97 99 05/06/18 13:38 05/06/18 13:53 05/06/18 14:13 Temperature 98.1 F Pulse Rate 69 70 66 Respiratory Rate 17 18 17 Blood Pressure 112/58 L 110/69 113/73 Pulse Oximetry 100 97 97 Intake & Output 05/05/18 05/06/18 05/06/18 18:59 06:59 18:59 Intake Total 61.5 / 61.5 Output Total 500 / 500 Balance -438.5 / -438.5 Weight 75 kg Intake: IV 61.5 / 61.5 Activase Drip 61.5 MG In Bag/ 61.5 / 61.5 Syringe 1 EACH @ 61.5 mls/hr IV .SIG ONCE ONE Rx#:[id number] Output: Urine 500 / 500 Other: Weight On Admission 75 kg Narrative: Well-developed male patient currently in no distress SKIN: warm/dry. HEAD: Atraumatic. Normocephalic. EYES: Pupils equal and round. No scleral icterus. No injection or drainage. ENT: No nasal bleeding or discharge. NECK: Trachea midline. No JVD. Supple. CARDIOVASCULAR: Regular rate and rhythm. No murmur appreciated. RESPIRATORY: No accessory muscle use. Clear to auscultation. Breath sounds equal bilaterally. GASTROINTESTINAL: Abdomen soft, non-tender, nondistended. Hepatic and splenic margins not palpable. MUSCULOSKELETAL: No obvious deformities. No clubbing. No cyanosis. No edema. NEUROLOGICAL: Awake and alert. No obvious cranial nerve deficits. Mild left arm weakness, 4/5 power at this time. Normal speech. Septic Shock Reassessment Septic shock perfusion: reassessment completed Caprini VTE Risk Assessment Caprini VTE Risk Assessment: Moderate/High Risk (score >= 2) Caprini Risk Assessment Model: Point Value = 1 Point Value = 2 Point Value = 3 Point Value = 5 Age 41-60 Minor surgery BMI > 25 kg/m2 Swollen legs Varicose veins or History of unexplained or recurrent spontaneous Oral contraceptives or hormone replacement Sepsis (< 1 month) Serious lung disease, including pneumonia (< 1 month) Abnormal pulmonary function Acute myocardial infarction Congestive heart failure (< 1 month) History of inflammatory bowel disease Medical patient at bed rest Age 61-74 Arthroscopic surgery Major open surgery (> 45 min) Laparoscopic surgery (> 45 min) Malignancy Confined to bed (> 72 hours) Immobilizing plaster cast Central venous access Age >= 75 History of VTE Family history of VTE Factor V Leiden Prothrombin [id number] Lupus anticoagulant Anticardiolipin antibodies Elevated serum homocysteine Heparin-induced thrombocytopenia Other congenital or acquired thrombophilia Stroke (< 1 month) Elective arthroplasty Hip, pelvis, or leg fracture Acute spinal cord injury (< 1 month) Prophylaxis Regimen: Total Risk Factor Score Risk Level Prophylaxis Regimen 0-1 Low Early ambulation 2 Moderate Order ONE of the following: *Sequential Compression Device (SCD) *Heparin 5000 units SQ BID 3-4 Higher Order ONE of the following medications: *Heparin 5000 units SQ TID *Enoxaparin/Lovenox 40 mg SQ daily (WT < 150 kg, CrCl > 30 mL/min) *Enoxaparin/Lovenox 30 mg SQ daily (WT < 150 kg, CrCl > 10-29 mL/min) *Enoxaparin/Lovenox 30 mg SQ BID (WT < 150 kg, CrCl > 30 mL/min) AND/OR *Sequential Compression Device (SCD) 5 or more Highest Order ONE of the following medications: *Heparin 5000 units SQ TID (Preferred with Epidurals) *Enoxaparin/Lovenox 40 mg SQ daily (WT < 150 kg, CrCl > 30 mL/min) *Enoxaparin/Lovenox 30 mg SQ daily (WT < 150 kg, CrCl > 10-29 mL/min) *Enoxaparin/Lovenox 30 mg SQ BID (WT < 150 kg, CrCl > 30 mL/min) AND *Sequential Compression Device (SCD) Assessment and Plan - Problem List (1) Acute ischemic stroke Code(s): I63.9 - Cerebral infarction, unspecified Status: Acute (2) History of lymphoma Code(s): Z85.79 - Personal history of other malignant neoplasms of lymphoid, hematopoietic and related tissues Status: Acute - Assessment and Plan Plan: NEURO: Acute right hemispheric ischemic stroke Left hand weakness -Received TPA per protocol -Repeat CT scan in 24 hours -Start aspirin after 24 hours -PT OT speech consult -Further workup with 2D echo carotid Doppler -TSH B12 -Neurology Dr. aKur RESP: -Aggressive pulmonary toilet CV: -Normal saline IV fluids 70 mL/h -Permissive hypertension -Start Lipitor 40 mg nightly GI: -Diet per speech recommendation IV famotidine : -Monitor renal function closely. ID: -No indication for antibiotics at this time HEME: History of lymphoma -Monitor CBC, coags -Lymphoma is in remission ENDO: -Electrolyte replacement per protocol PROPH: -Bilateral lower extremity SCDs. IV famotidine -Chemical DVT prophylaxis contraindicated for 24 hours LINES: -Utilize peripheral IVs, central line if needed Level 3 new admit Code Status: Full H&P: Quality - VTE Deep Vein Thrombosis/Pulmonary Embolism Present on Admission: No
--- NOTE | 2018-05-06 16:25 | ECHRPT ---
Indication: cva/tia CONCLUSIONS Normal left ventricular size. Wall thickness is normal. The left ventricular systolic function is moderately reduced with an estimated ejection fraction in the range of 40-45%. There is trace tricuspid valve regurgitation. The estimated pulmonary arterial pressure is 17 mmHg. BP: / HR: Rhythm: MEASUREMENTS (Male / Female) Normal Values Technical Quality: 2D ECHO LV Diastolic Diameter PLAX 5.3 cm 4.2 - 5.9 / 3.9 - 5.3 cm LV Systolic Diameter PLAX 4.5 cm IVS Diastolic Thickness 0.9 cm 0.6 - 1.0 / 0.6 - 0.9 cm LVPW Diastolic Thickness 0.9 cm 0.6 - 1.0 / 0.6 - 0.9 cm LV Relative Wall Thickness 0.3 RV Internal Dim ED PLAX 2.9 cm LVOT Diameter 2.3 cm Aortic Root Diameter 3.4 cm LA Systolic Diameter LX 2.9 cm 3.0 - 4.0 / 2.7 - 3.8 cm M-MODE Aortic Root Diameter MM 3.9 cm LA Systolic Diameter MM 4.1 cm LA Ao Ratio MM 1.1 AV Cusp Separation MM 2.5 cm DOPPLER AV Peak Velocity 108.0 cm/s AV Peak Gradient 4.7 mmHg LVOT Peak Velocity 90.8 cm/s LVOT Peak Gradient 3.3 mmHg AV Area Cont Eq pk 3.5 cm Mitral E Point Velocity 50.3 cm/s Mitral A Point Velocity 49.4 cm/s Mitral E to A Ratio 1.0 LV E' Lateral Velocity 9.4 cm/s Mitral E to LV E' Lateral Ratio 5.4 LV E' Septal Velocity 8.0 cm/s Mitral E to LV E' Septal Ratio 6.3 TR Peak Velocity 134.0 cm/s TR Peak Gradient 7.2 mmHg Right Atrial Pressure 10.0 mmHg Pulmonary Artery Systolic Pressu 17.2 mmHg Right Ventricular Systolic Press 17.2 mmHg PV Peak Velocity 32.1 cm/s PV Peak Gradient 0.4 mmHg FINDINGS LEFT VENTRICLE Normal left ventricular size. Wall thickness is normal. The left ventricular systolic function is moderately reduced with an estimated ejection fraction in the range of 40-45%. RIGHT VENTRICLE Normal right ventricular size and systolic function. LEFT ATRIUM The left atrial size is normal. RIGHT ATRIUM The right atrial size is normal. ATRIAL SEPTUM Normal atrial septal thickness without atrial level shunting by limited color doppler interrogation. AORTA The aortic root and proximal ascending aorta are normal in size on limited imaging. MITRAL VALVE Structurally normal mitral valve. No mitral valve stenosis or regurgitation. AORTIC VALVE Trileaflet aortic valve. No aortic valve stenosis or regurgitation. TRICUSPID VALVE There is trace tricuspid valve regurgitation. The estimated pulmonary arterial pressure is 17 mmHg. PULMONARY VALVE No pulmonary valve regurgitation or stenosis. VESSELS The inferior vena cava is normal in size. PERICARDIUM No pericardial effusion. Brennen Burt MD, FACC, [facility] [place] [facility] (Electronically Signed) Final Date:06 May 2018 16:25
[2018-05-06] MEDS ORDERED: Influenza (Quadrivalent) Vaccine 0.5 ML Syringe IM ONE (16:30)
[2018-05-06 16:39] LABS: Bacteria,Urine Rare /hpf; Bilirubin,Urine Negative (Negative); Clarity,Urine Clear (Clear); Color,Urine Straw (Yellw/Straw); Glucose,Urine (UA) Negative (Negative); Leukocyte Esterase,Urine Negative (Negative); Nitrite,Urine Negative (Negative); Specific Gravity,Urine 1.029 (1.002-1.035)
[2018-05-06 16:55] LABS: Amphetamine Screen,Urine Neg (Neg); Barbiturate Screen,Urine Neg (Neg); Cannabinoid Screen,Urine Pos (Neg); Cocaine Screen,Urine Neg (Neg)
[2018-05-06 17:08] LABS: Opiate Screen,Urine Neg (Neg)
--- NOTE | 2018-05-06 18:20 | MB ---
cc: Naif Kaur MD DATE: 05/06/2018 HISTORY OF PRESENT ILLNESS: This is a 62-year-old right-handed man with peptic ulcer disease in 2017 and lymphoma in his bone marrow status post chemo, otherwise has been healthy and about 30 minutes before presentation today, he developed the onset of slurred speech and dropped something out of his left arm, came in, and was found to be weak in the left arm. CAT scan of brain shows encephalomalacia in the right medial frontal lobe, otherwise nothing acute on my review. CTA of the rincon of Asencio and neck also preliminarily negative. We went ahead and gave him TPA. He was noted to be in sinus rhythm with a blood pressure 130/80 with a normal glucose. REVIEW OF SYSTEMS: He denies any history of hypertension, diabetes, hypercholesterolemia, LA, stent, angioplasty, AFib, Coumadin. He has had a slight headache. No history of renal, hepatic, pulmonary disease, thyroid disease, lupus, ulcer, seizure or stroke. SOCIAL HISTORY: He is a smoker and I have asked him to quit. Occasionally has a drink. Lives with his . FAMILY HISTORY: Positive for cancer, ____, stroke. MEDICATIONS: He does not take any blood thinners, and on aspirin. No known home medications. PHYSICAL EXAMINATION: GENERAL: On exam, as noted above. There were no carotid bruits. HEART: Regular rhythm. I did not detect a murmur. NEUROLOGIC: Pupils are equal. Visual rodriguez are full. Extraocular movements intact without nystagmus. Face is symmetric at mobilization. Tongue was midline. He had normal strength in the right upper and right lower extremities. Left upper extremity, he cannot lift up off the bed, but when I hold it up, he can hold it up off the bed, 0/5 in the left hand, about 4-/5 in the left triceps. He has normal strength in the left lower extremity except his toe extensors are slightly weak, about a 4+/5. His speech is fluent. He is not aphasic. NIH stroke scale was a 6. 1. Pinprick was noted to be diminished in the right lower leg, but not the right foot and diminished quite a bit in the left arm, but not in the left face. There was no visual neglect. ALLERGIES: NO KNOWN DRUG ALLERGIES. LABORATORY DATA: Pending from today. CBC today. Normal. Coags normal. Basic metabolic profile: Sodium 134, otherwise normal. LFTs were normal in 05/2016. IMPRESSION: Apparent stroke. We did go ahead and give TPA with his deficit in the left arm, especially weak and also numb. We will do a stroke workup on the patient. The CTAs appear to be preliminarily negative. MD OMID Hoffmann/jones/jesus , 12:09 PM , 12:18 PM
--- NOTE | 2018-05-06 19:10 | MG ---
cc: Naif Kaur MD EEG NUMBER: [id number] INDICATIONS: Left arm weakness, history of lymphoma. Photic shows symmetric 12 Hz, 60 microvolt posterior rhythm. No right hemisphere abnormalities are noted. Some muscle artifact is seen. Hyperventilation not performed. Photic stimulation is performed with some symmetric posterior driving. IMPRESSION: Normal awake electroencephalogram. No evidence for a focal or diffuse abnormality. No right hemisphere abnormalities are noted. Naif Kaur MD DJM/ct , 06:51 PM , 06:57 PM
[2018-05-07] MEDS: Sod Chloride 0.9% Inj 1,000 ML IV.CONT SCH (04:25)
--- NOTE | 2018-05-07 08:10 | P.PNNEU ---
Subjective Active Medications: Active Medications Atorvastatin Calcium (Lipitor) 40 mg PO HS [facility] Last Admin: 05/06/18 21:34 Dose: 40 mg Sodium Chloride (Ns Inj) 1,000 mls @ 70 mls/hr IV.CONT .[id number] [facility] Last Admin: 05/07/18 04:25 Dose: 70 mls/hr Sodium Chloride (Ns Flush) 2 ml IV.FLUSH UNSCH PRN PRN Reason: FLUSH AFTER USING IV ACCESS Sodium Chloride (Ns Flush) 2 ml IV.FLUSH BID [facility] Last Admin: 05/06/18 21:34 Dose: 2 ml Allergies/Adverse Reactions: Allergies Allergy/AdvReac Type Severity Reaction Status Date / Time No Known Allergies Allergy Verified 05/06/18 11:24 Physical Exam Vital signs: Vital Signs 05/06/18 11:11 05/06/18 11:23 05/06/18 11:30 Temperature 97.7 F Pulse Rate 74 88 80 Respiratory Rate 12 19 17 Blood Pressure 160/77 H 118/78 112/75 Pulse Oximetry 97 98 97 05/06/18 11:40 05/06/18 11:53 05/06/18 12:10 Temperature Pulse Rate 74 74 Respiratory Rate 19 18 Blood Pressure 116/71 124/71 Pulse Oximetry 94 L 97 97 05/06/18 12:15 05/06/18 12:23 05/06/18 12:38 Temperature Pulse Rate 71 68 66 Respiratory Rate 19 20 19 Blood Pressure 113/74 111/72 116/74 Pulse Oximetry 98 96 98 05/06/18 12:53 05/06/18 13:08 05/06/18 13:23 Temperature Pulse Rate 66 65 64 Respiratory Rate 17 15 16 Blood Pressure 107/70 110/69 109/71 Pulse Oximetry 98 97 99 05/06/18 13:38 05/06/18 13:53 05/06/18 14:13 Temperature 98.1 F Pulse Rate 69 70 66 Respiratory Rate 17 18 17 Blood Pressure 112/58 L 110/69 113/73 Pulse Oximetry 100 97 97 05/06/18 14:24 05/06/18 14:30 05/06/18 14:54 Temperature Pulse Rate 66 64 64 Respiratory Rate 15 16 22 Blood Pressure 118/71 113/73 115/75 Pulse Oximetry 98 05/06/18 15:00 05/06/18 15:25 05/06/18 15:30 Temperature 98.1 F Pulse Rate 63 72 63 Respiratory Rate 14 34 H 23 Blood Pressure 115/71 120/71 109/65 Pulse Oximetry 99 98 100 05/06/18 16:00 05/06/18 16:17 05/06/18 16:30 Temperature Pulse Rate 61 64 59 L Respiratory Rate 15 18 18 Blood Pressure 110/69 145/73 H 112/67 Pulse Oximetry 98 97 98 05/06/18 16:48 05/06/18 17:00 05/06/18 17:26 Temperature Pulse Rate 59 L 59 L 58 L Respiratory Rate 17 13 15 Blood Pressure 116/81 109/68 119/70 Pulse Oximetry 99 98 97 05/06/18 17:30 05/06/18 17:53 05/06/18 18:00 Temperature Pulse Rate 65 66 58 L Respiratory Rate 19 19 16 Blood Pressure 124/71 122/76 117/70 Pulse Oximetry 99 97 96 05/06/18 18:21 05/06/18 18:30 05/06/18 19:00 Temperature Pulse Rate 65 57 L 58 L Respiratory Rate 21 16 14 Blood Pressure 120/73 116/69 125/77 Pulse Oximetry 97 96 97 05/06/18 19:02 05/06/18 19:30 05/06/18 20:00 Temperature 97.8 F Pulse Rate 59 L 56 L 59 L Respiratory Rate 16 20 15 Blood Pressure 144/87 H 113/58 L 108/60 Pulse Oximetry 97 97 94 L 05/06/18 20:30 05/06/18 21:00 05/06/18 21:24 Temperature Pulse Rate 57 L 59 L Respiratory Rate 17 17 Blood Pressure 108/67 112/68 Pulse Oximetry 95 95 97 05/06/18 21:30 05/06/18 22:00 05/06/18 22:30 Temperature 97.9 F Pulse Rate 58 L 56 L 55 L Respiratory Rate 23 14 13 Blood Pressure 114/65 112/67 110/72 Pulse Oximetry 96 95 95 05/06/18 23:00 05/06/18 23:30 05/07/18 00:00 Temperature Pulse Rate 54 L 57 L 53 L Respiratory Rate 12 15 14 Blood Pressure 112/67 107/68 108/67 Pulse Oximetry 95 95 96 05/07/18 00:30 05/07/18 01:00 05/07/18 01:30 Temperature Pulse Rate 59 L 58 L 56 L Respiratory Rate 16 25 H 16 Blood Pressure 111/62 107/65 113/69 Pulse Oximetry 95 96 95 05/07/18 02:00 05/07/18 02:30 05/07/18 03:00 Temperature Pulse Rate 57 L 56 L 68 Respiratory Rate 16 15 20 Blood Pressure 102/64 104/66 113/71 Pulse Oximetry 95 95 96 05/07/18 03:30 05/07/18 04:00 05/07/18 04:07 Temperature Pulse Rate 56 L 65 58 L Respiratory Rate 12 13 13 Blood Pressure 112/64 105/64 Pulse Oximetry 96 96 95 05/07/18 05:00 05/07/18 05:06 05/07/18 06:00 Temperature 97.9 F Pulse Rate 59 L 60 61 Respiratory Rate 13 14 0 L Blood Pressure 112/69 Pulse Oximetry 95 95 95 05/07/18 06:04 05/07/18 06:26 05/07/18 07:00 Temperature Pulse Rate 60 75 57 L Respiratory Rate 16 24 16 Blood Pressure 92/53 L 98/62 L Pulse Oximetry 95 96 96 05/07/18 07:04 05/07/18 07:26 05/07/18 08:00 Temperature 98 F Pulse Rate 65 62 62 Respiratory Rate 15 16 Blood Pressure 118/66 95/62 L Pulse Oximetry 97 96 98 Intake & Output 05/06/18 05/07/18 05/07/18 18:59 06:59 18:59 Intake Total 61.5 / 61.5 1480 / 1480 Output Total 1100 / 1100 850 / 850 Balance -1038.5 / -1038.5 630 / 630 Weight 75 kg 75.1 kg Intake: IV 61.5 / 61.5 1000 / 1000 NS Inj 1,000 ML @ 70 mls/hr IV. 1000 / 1000 CONT .[id number] [facility] Rx#:[id number] Activase Drip 61.5 MG In Bag/ 61.5 / 61.5 Syringe 1 EACH @ 61.5 mls/hr IV .SIG ONCE ONE Rx#:[id number] Oral 480 / 480 Output: Urine 1100 / 1100 850 / 850 Other: Weight On Admission 75 kg Narrative: no new spells back to nl vff face sym 5/5 lue lle Objective Laboratory Results - last 24 hr 05/06/18 05/06/18 05/06/18 11:21 11:25 11:25 WBC 5.7 RBC 4.41 L Hgb 14.6 POC Hgb (Calc) Hct 42.3 POC Hct MCV 96.0 MCH 33.1 MCHC 34.5 RDW 13.8 Plt Count 261 MPV 7.1 Neut % (Auto) 68.4 Lymph % (Auto) 17.9 [place] % (Auto) 11.3 H Eos % (Auto) 1.6 Baso % (Auto) 0.8 Neut # (Auto) 3.9 Lymph # (Auto) 1.0 [place] # (Auto) 0.6 Eos # (Auto) 0.1 Baso # (Auto) 0.0 WBC Differential . Differential Comment Auto diff final ESR PT 10.0 INR 1.0 APTT 27.3 POC Sodium Sodium POC Potassium Potassium POC Chloride Chloride Carbon Dioxide Anion Gap POC BUN BUN Creatinine POC Creatinine Estimated GFR POC Glucose 104 Random Glucose Calcium Total Creatine Kinase CK-MB (CK-2) Troponin I Urine Color Urine Clarity Urine pH Ur Specific [place] Urine Protein Urine Glucose (UA) Urine Ketones Urine Occult Blood Urine Nitrate Urine Bilirubin Urine Urobilinogen Ur Leukocyte Esterase Urine WBC Urine Bacteria Micro UA Comment Ur Microscopic Review Urine Culture Comments Urine Opiates Screen Ur Barbiturates Screen Ur Amphetamines Screen U Benzodiazepines Scrn Urine Cocaine Screen U Cannabinoids Screen 05/06/18 05/06/18 05/06/18 11:25 11:25 11:40 WBC RBC Hgb POC Hgb (Calc) 15.3 Hct POC Hct 45.0 MCV MCH MCHC RDW Plt Count MPV Neut % (Auto) Lymph % (Auto) [place] % (Auto) Eos % (Auto) Baso % (Auto) Neut # (Auto) Lymph # (Auto) [place] # (Auto) Eos # (Auto) Baso # (Auto) WBC Differential Differential Comment ESR 5 PT INR APTT POC Sodium 134 L Sodium 133 L POC Potassium 4.1 Potassium 4.1 POC Chloride 95 L Chloride 99 Carbon Dioxide 27.9 Anion Gap 6 POC BUN 4 L BUN 7 Creatinine 0.74 POC Creatinine 0.7 Estimated GFR Greater than 89 POC Glucose 100 Random Glucose 101 Calcium 8.3 L Total Creatine Kinase 120 CK-MB (CK-2) Less than 1.0 Troponin I Less than 0.02 L Urine Color Urine Clarity Urine pH Ur Specific [place] Urine Protein Urine Glucose (UA) Urine Ketones Urine Occult Blood Urine Nitrate Urine Bilirubin Urine Urobilinogen Ur Leukocyte Esterase Urine WBC Urine Bacteria Micro UA Comment Ur Microscopic Review Urine Culture Comments Urine Opiates Screen Ur Barbiturates Screen Ur Amphetamines Screen U Benzodiazepines Scrn Urine Cocaine Screen U Cannabinoids Screen 05/06/18 05/06/18 13:44 13:44 WBC RBC Hgb POC Hgb (Calc) Hct POC Hct MCV MCH MCHC RDW Plt Count MPV Neut % (Auto) Lymph % (Auto) [place] % (Auto) Eos % (Auto) Baso % (Auto) Neut # (Auto) Lymph # (Auto) [place] # (Auto) Eos # (Auto) Baso # (Auto) WBC Differential Differential Comment ESR PT INR APTT POC Sodium Sodium POC Potassium Potassium POC Chloride Chloride Carbon Dioxide Anion Gap POC BUN BUN Creatinine POC Creatinine Estimated GFR POC Glucose Random Glucose Calcium Total Creatine Kinase CK-MB (CK-2) Troponin I Urine Color Straw Urine Clarity Clear Urine pH 7.0 Ur Specific [place] 1.029 Urine Protein Negative Urine Glucose (UA) Negative Urine Ketones Negative Urine Occult Blood Negative Urine Nitrate Negative Urine Bilirubin Negative Urine Urobilinogen Less than 2 Ur Leukocyte Esterase Negative Urine WBC Less than 1 Urine Bacteria Rare H Micro UA Comment Culture not ind Ur Microscopic Review Not Reportable Urine Culture Comments Culture not ind Urine Opiates Screen Neg Ur Barbiturates Screen Neg Ur Amphetamines Screen Neg U Benzodiazepines Scrn Neg Urine Cocaine Screen Neg U Cannabinoids Screen Pos H Review/Management - Review/Management Plan: imp sr echo ef 40-45% mri nl eeg nl LDL pend plan is have cards see may need stress test and loop in i would like him to get one asa 325 for a month then 81 mg unless we find something else for this tia/ sp TPA no cva on mri
--- NOTE | 2018-05-07 10:08 | ECG ---
Date Performed: 05/06/2018 Time Performed: 11:26:07 PTAGE: 62 years EKG: Sinus rhythm POSSIBLE RIGHT VENTRICULAR CONDUCTION DELAY TALL T-WAVES, SUGGESTS HYPERKALEMIA ABNORMAL ECG Compare d to PREVIOUS TRACING the T waves are much more pronounced suggestive of hyperkalemia Clinica l correlation suggested PREVIOUS TRACIN06/04/2016 20.12 DOCTOR: Sheila Inman Interpretating Date/Time 05/07/2018 10:08:23
[2018-05-07 11:53] VITALS: PULSE 59
[2018-05-07 11:54] VITALS: BP 139/72; RESP 29; TEMP 98.1; O2SAT 98
--- NOTE | 2018-05-07 12:07 | CT ---
EXAM DATE: 05/07/2018 12:01 PM EST AGE/SEX: 62 years / Male INDICATIONS: Post TPA stroke left arm weakness CLINICAL DATA: This is the patient's initial encounter. Patient reports that signs and symptoms have been present for 1 day and indicates a pain score of 0/10. MEDICAL/SURGICAL HISTORY: None. None. RADIATION DOSE: 56.35 CTDI (mGy) COMPARISON: [facility] [place] W & W/O CONTRAST, 05/06/2018. [facility] [place], [place] HEAD W/O CONTRAST, 05/06/2018. . TECHNIQUE: CT of the head without contrast. Using automated exposure control and adjustment of the mA and/or kV according to patient size, radiation dose was kept as low as reasonably achievable to ob tain optimal diagnostic quality images. DICOM format image data is available electronically for revi ew and comparison. FINDINGS: Cerebrum: The ventricles are normal for age. No evidence of midline shift, mass lesion, hemorrhage or acute infarction. No extraaxial fluid collections are seen. Stable perivascular space right fron patsy region. Posterior Fossa: The cerebellum and brainstem are intact. The 4th ventricle is midline. The cerebe llopontine angle is unremarkable. Extracranial: The visualized portion of the orbits is intact. Skull: The calvaria is intact. No evidence of skull fracture. CONCLUSION: 1. Negative CT Head non contrast. . Electronically signed by: Gui Yeung MD Board Certified Radiologist 05/07/2018 12:06 PM EST
--- NOTE | 2018-05-07 12:48 | MB ---
cc: Gilbert Valenzuela MD DATE: 05/07/2018 CARDIOLOGY CONSULTATION NOTE REASON FOR CONSULTATION: Cardiomyopathy, consider loop recorder implant. HISTORY OF PRESENT ILLNESS: The patient is a 62-year-old white male with a history of follicular lymphoma status post chemotherapy 2016, who presented to the hospital with slurred speech and left arm weakness/paresthesias. All of these neurological changes have resolved and he has been felt to have sustained a transient ischemic attack. The patient denies chest pain, shortness of breath, dizziness, syncope, near syncope, palpitations, pedal edema, paroxysmal nocturnal dyspnea, or orthopnea. Echocardiogram here in the hospital reported an ejection fraction of 40%-45%. The patient does recall having flu-like symptoms about 3 months ago. PAST MEDICAL HISTORY: Follicular lymphoma, status post chemotherapy 2016. PAST SURGICAL HISTORY: 1. Open reduction and internal fixation of left ankle fracture 05/15/2011. 2. Vasectomy. 3. Removal of painful hardware from the left ankle 03/03/2012. 4. Left inguinal lymph node biopsy. CARDIAC MEDICATIONS AT HOME: 1. Aspirin 325 mg daily. 2. Atorvastatin 40 mg at bedtime. ALLERGIES: NO KNOWN DRUG ALLERGIES. FAMILY HISTORY: There is no significant family history of early myocardial infarction or sudden cardiac . SOCIAL HISTORY: The patient smokes occasional cigarettes. He denies alcohol abuse. REVIEW OF SYSTEMS: As in history of present illness, otherwise negative or noncontributory. He also currently denies headache, abdominal pain, melena, dyspepsia, bright red blood per rectum, wheezing. PHYSICAL EXAMINATION: VITAL SIGNS: Blood pressure 139/72 with a pulse of 59, respirations 20. GENERAL: He is a well-developed, well-nourished white male, in no acute distress. NECK: Jugular venous pressure is normal. Carotid pulses are 2+ bilaterally and without bruits. CHEST: Reveals clear lungs rodriguez. CARDIAC: He has a regular rhythm and rate with a grade 2/6 blowing systolic murmur heard best at the base of the heart. The S2 heart sound is normal. No gallop is audible. ABDOMEN: He has a soft nontender abdomen. Bowel sounds are present. There is no definite hepatosplenomegaly. EXTREMITIES: Reveals no clubbing, cyanosis or edema. DIAGNOSTIC DATA: EKG shows sinus rhythm; tall T-waves in V3 and V4. IMAGING: Chest x-ray shows no acute disease. LABORATORY DATA: Include sodium 134, potassium 4.1, BUN 7, creatinine 0.74. CK 120. Troponin less than 0.02. Normal CBC. IMPRESSION: A 62-year-old white male with history of follicular lymphoma status post chemotherapy, now admitted with a transient ischemic attack. I have been asked to see the patient for possible cardiomyopathy and consideration of an implantable loop recorder. With respect to his cardiomyopathy, the reported ejection fraction of 40%-45% is most likely underestimating his ejection fraction. On most views his ejection fraction is closer to 50%, possibly 45% on other views. I have found loop recorders to often have a poor P-wave sensitivity and benign rhythms such as sinus rhythm with premature atrial complexes can be misinterpreted as atrial fibrillation, subsequently subjecting the patient to unnecessary anticoagulation therapy. RECOMMENDATIONS: 1. Initiate beta susan and RICKIE inhibitor therapy with a repeat echo in 90 days. 2. At this point, would not recommend a loop recorder with its sometimes poor P-wave sensitivity. Instead would recommend a 3-week outpatient monitor to rule out occult atrial fibrillation. 3. We will followup as needed here in the hospital. He can followup with me in the office in about 3-4 weeks. MD ROSALIE Gutierrez/maxine , 12:29 PM , 12:41 PM SINTIA
[2018-05-07] MEDS ORDERED: Influenza (Quadrivalent) Vaccine 0.5 ML Syringe IM ONE (13:00)
--- NOTE | 2018-05-07 13:43 | P.PNIM ---
Subjective Interval history: Nursing denies any acute deterioration since last night. Patient self denies any headache nausea vomiting. denies noticing any facial droop today. Patient thinks that his neurological symptoms went away shortly after TPA administration upon admission. Denies any numbness today. Physical Exam Vital signs: Vital Signs 05/06/18 13:53 05/06/18 14:13 05/06/18 14:24 Temperature 98.1 F Pulse Rate 70 66 66 Respiratory Rate 18 17 15 Blood Pressure 110/69 113/73 118/71 Pulse Oximetry 97 97 05/06/18 14:30 05/06/18 14:54 05/06/18 15:00 Temperature Pulse Rate 64 64 63 Respiratory Rate 16 22 14 Blood Pressure 113/73 115/75 115/71 Pulse Oximetry 98 99 05/06/18 15:25 05/06/18 15:30 05/06/18 16:00 Temperature 98.1 F Pulse Rate 72 63 61 Respiratory Rate 34 H 23 15 Blood Pressure 120/71 109/65 110/69 Pulse Oximetry 98 100 98 05/06/18 16:17 05/06/18 16:30 05/06/18 16:48 Temperature Pulse Rate 64 59 L 59 L Respiratory Rate 18 18 17 Blood Pressure 145/73 H 112/67 116/81 Pulse Oximetry 97 98 99 05/06/18 17:00 05/06/18 17:26 05/06/18 17:30 Temperature Pulse Rate 59 L 58 L 65 Respiratory Rate 13 15 19 Blood Pressure 109/68 119/70 124/71 Pulse Oximetry 98 97 99 05/06/18 17:53 05/06/18 18:00 05/06/18 18:21 Temperature Pulse Rate 66 58 L 65 Respiratory Rate 19 16 21 Blood Pressure 122/76 117/70 120/73 Pulse Oximetry 97 96 97 05/06/18 18:30 05/06/18 19:00 05/06/18 19:02 Temperature Pulse Rate 57 L 58 L 59 L Respiratory Rate 16 14 16 Blood Pressure 116/69 125/77 144/87 H Pulse Oximetry 96 97 97 05/06/18 19:30 05/06/18 20:00 05/06/18 20:30 Temperature 97.8 F Pulse Rate 56 L 59 L 57 L Respiratory Rate 20 15 17 Blood Pressure 113/58 L 108/60 108/67 Pulse Oximetry 97 94 L 95 05/06/18 21:00 05/06/18 21:24 05/06/18 21:30 Temperature Pulse Rate 59 L 58 L Respiratory Rate 17 23 Blood Pressure 112/68 114/65 Pulse Oximetry 95 97 96 05/06/18 22:00 05/06/18 22:30 05/06/18 23:00 Temperature 97.9 F Pulse Rate 56 L 55 L 54 L Respiratory Rate 14 13 12 Blood Pressure 112/67 110/72 112/67 Pulse Oximetry 95 95 95 05/06/18 23:30 05/07/18 00:00 05/07/18 00:30 Temperature Pulse Rate 57 L 53 L 59 L Respiratory Rate 15 14 16 Blood Pressure 107/68 108/67 111/62 Pulse Oximetry 95 96 95 05/07/18 01:00 05/07/18 01:30 05/07/18 02:00 Temperature Pulse Rate 58 L 56 L 57 L Respiratory Rate 25 H 16 16 Blood Pressure 107/65 113/69 102/64 Pulse Oximetry 96 95 95 05/07/18 02:30 05/07/18 03:00 05/07/18 03:30 Temperature Pulse Rate 56 L 68 56 L Respiratory Rate 15 20 12 Blood Pressure 104/66 113/71 112/64 Pulse Oximetry 95 96 96 05/07/18 04:00 05/07/18 04:07 05/07/18 05:00 Temperature 97.9 F Pulse Rate 65 58 L 59 L Respiratory Rate 13 13 13 Blood Pressure 105/64 Pulse Oximetry 96 95 95 05/07/18 05:06 05/07/18 06:00 05/07/18 06:04 Temperature Pulse Rate 60 61 60 Respiratory Rate 14 0 L 16 Blood Pressure 112/69 92/53 L Pulse Oximetry 95 95 95 05/07/18 06:26 05/07/18 07:00 05/07/18 07:04 Temperature Pulse Rate 75 57 L 65 Respiratory Rate 24 16 15 Blood Pressure 98/62 L 118/66 Pulse Oximetry 96 96 97 05/07/18 07:26 05/07/18 07:33 05/07/18 08:00 Temperature 98 F Pulse Rate 62 66 62 Respiratory Rate 16 30 H Blood Pressure 95/62 L Pulse Oximetry 96 96 98 05/07/18 08:43 05/07/18 08:44 05/07/18 08:46 Temperature Pulse Rate 69 64 Respiratory Rate 20 Blood Pressure 109/70 Pulse Oximetry 97 05/07/18 09:28 05/07/18 09:29 05/07/18 09:30 Temperature Pulse Rate 62 59 L Respiratory Rate 21 Blood Pressure 132/69 Pulse Oximetry 98 05/07/18 09:38 05/07/18 10:22 05/07/18 10:23 Temperature Pulse Rate 58 L 65 Respiratory Rate 18 Blood Pressure 121/71 Pulse Oximetry 98 05/07/18 10:43 05/07/18 11:00 05/07/18 11:22 Temperature Pulse Rate 63 63 65 Respiratory Rate 19 24 43 H Blood Pressure 132/77 123/81 Pulse Oximetry 97 98 97 05/07/18 11:38 05/07/18 11:52 Temperature 98.1 F Pulse Rate 59 L 59 L Respiratory Rate 29 H Blood Pressure 139/72 Pulse Oximetry 98 Intake & Output 05/06/18 05/07/18 05/07/18 18:59 06:59 18:59 Intake Total 61.5 / 61.5 1480 / 1480 Output Total 1100 / 1100 850 / 850 Balance -1038.5 / -1038.5 630 / 630 Weight 75 kg 75.1 kg Intake: IV 61.5 / 61.5 1000 / 1000 NS Inj 1,000 ML @ 70 mls/hr IV. 1000 / 1000 CONT .[id number] [facility] Rx#:[id number] Activase Drip 61.5 MG In Bag/ 61.5 / 61.5 Syringe 1 EACH @ 61.5 mls/hr IV .SIG ONCE ONE Rx#:[id number] Oral 480 / 480 Output: Urine 1100 / 1100 850 / 850 Other: Weight On Admission 75 kg Narrative: Clear lungs bilaterally, unlabored breathing Heart sounds regular rate and rhythm, no murmurs No lower extremity edema Abdomen soft, nontender, nondistended No facial droop, no slurred speech 5/5 proximal upper and lower extremity strength grossly bilaterally Patellar 2+ reflexes bilaterally Pupils equal round reactive bilaterally Extraocular motions intact, tracks well across midline Alert and oriented x3, insight intact Results - Labs CBC & Chem 7: 05/06/18 11:25 05/06/18 11:25 Laboratory Results - last 24 hr 05/06/18 05/06/18 05/06/18 11:25 13:44 13:44 ESR 5 Urine Color Straw Urine Clarity Clear Urine pH 7.0 Ur Specific [place] 1.029 Urine Protein Negative Urine Glucose (UA) Negative Urine Ketones Negative Urine Occult Blood Negative Urine Nitrate Negative Urine Bilirubin Negative Urine Urobilinogen Less than 2 Ur Leukocyte Esterase Negative Urine WBC Less than 1 Urine Bacteria Rare H Micro UA Comment Culture not ind Ur Microscopic Review Not Reportable Urine Culture Comments Culture not ind Urine Opiates Screen Neg Ur Barbiturates Screen Neg Ur Amphetamines Screen Neg U Benzodiazepines Scrn Neg Urine Cocaine Screen Neg U Cannabinoids Screen Pos H - Imaging Impressions Chest X-Ray 05/06/18 11:23 CONCLUSION: No acute cardiopulmonary disease. Head MRI 05/06/18 12:08 CONCLUSION: 1. No signs of mass, acute infarct, or hemorrhage. Head CT 05/07/18 11:58 CONCLUSION: 1. Negative CT Head non contrast. . Assessment and Plan - Plan 62-year-old white male admitted with strokelike symptoms with left-sided weakness. Left-sided weakness Resolved, likely TIAstatus post TPA -SIGN HANGER images are unremarkable -Cardiology input appreciated, outpatient 3-week monitor for occult A. fib -Lipitor and 325 mg aspirin on discharge, appreciate neurology input Mildly reduced EF of 40-45% -Outpatient stress test Patient has been maximal benefit from hospitalization is clinically stable for discharge.
[2018-05-07 14:19] LABS: Chol/HDL Ratio 5.63 Ratio; Free T4 (Free Thyroxine) 0.91 ng/dL (0.76-1.46); HDL Cholesterol 41.7 mg/dL (40.0-60.0); Thyroid Stimulating Hormone 2.25 uIU/mL (0.358-3.740)
[2018-05-07 17:32] LABS: Hemoglobin A1c 5.1 % (4.3-6.0)
== END 2018-05-07 14:19 | disposition home or self-care (01) | DRG 62 ==
LOC: NEPE 11:02 → NEDA 12:20 → N03 14:15
PROVIDERS: ADMIT Hospitalist; ATTEND Hospitalist
CPT/HCPCS: 70450; 70496; 70498; 70553; 71010; 71045; 80048; 80061; 80307; 81001; 82550; 82552; 82607; 82948; 82962; 83036; 83918; 83921; 84165; 84439; 84443; 84484; 85025; 85610; 85651; 85652; 85730; 86038; 90658; 90686; 90774; 90775; 90784; 92610; 93005; 93306; 95819; 96374; 96375; 97162; 99285; A9585; C8952; G0195; J2997; J7030; Q2038; Q9967